=== PATIENT | male | born 1990 | race Caucasian/White ===

== ENCOUNTER 2019-01-30 15:44 | Observation (INO) | payer OTHER, SELFPAY ==
[2019-01-30 16:08] LABS: #Basophils 0.1 thou/uL (0.0-0.2); #Eosinphils 0.5 thou/uL (0.0-0.7); #Lymphocytes 2.1 thou/uL (1.20-3.40); #Monocytes 0.9 thou/uL (0.11-0.59); #Neutrophils 10.4 thou/uL (1.40-6.50); %Basophils 0.4 % (0.0-1.0); %Eosinophils 3.6 % (0.0-10.0); %Lymphocytes 15.2 % (21.0-51.0); %Monocytes 6.7 % (0.0-10.0); %Neutrophils 74.2 % (42.0-75.0); Hemoglobin 16.9 g/dL (14.0-18.0); Mean Corpuscular HGB CONC 33.3 g/dL (32.0-36.0); Mean Corpuscular Hemoglobin 26.1 pg (27.0-31.0); Mean Corpuscular Volume 78.5 fL (78.0-98.0); Mean Platelet Volume 7.9 fL (7.4-10.4); Platelet Count 286 thou/uL (130-400); RBC Distribution Width 12.5 % (11.5-14.5); Red Blood Cell (RBC) Count 6.47 mill/uL (4.70-6.10); White Blood Cell (WBC) Count 14.1 thou/uL (4.8-10.8)
[2019-01-30 16:31] LABS: ALT (SGPT) 55 U/L (8-55); AST (SGOT) 26 U/L (5-34); Albumin 4.7 g/dL (3.5-5.0); Alkaline Phosphatase 115 U/L (40-150); Anion Gap 14 mmol/L (10-20); BUN (Urea Nitrogen) 12 mg/dL (8.9-20.6); Bilirubin, Total 0.3 mg/dL (0.2-1.2); Calc. Creatinine Clearance 0 mL/min (70-130); Carbon Dioxide 26 mmol/L (22-29); Chloride 104 mmol/L (98-107); Estimated GFR-MDRD Greater than 90; Globulin 3.5 g/dL (2.4-3.5); Glucose 131 mg/dL (70-105); Lipase 23 U/L (8-78); Potassium 4.2 mmol/L (3.5-5.1); Protein, Total 8.2 g/dL (6.0-8.3); Sodium 140 mmol/L (136-145)
[2019-01-30] MEDS ORDERED: Pantoprazole 40 MG VIAL ONE (16:50)
[2019-01-30] MEDS ORDERED: Ondansetron PF 4 MG/2 ML Vial ONE (16:50)
[2019-01-30 17:17] LABS: Bilirubin Negative (Negative); Blood, Urine Negative (Negative); Clarity CLEAR (Clear); Glucose, Urine (Dipstick) Negative (Negative); Leukocyte Negative (Negative); Nitrite Negative (Negative); Protein, Urine (Dipstick) 30 mg/dL (Neg-Trace); Specific Gravity, Urine 1.031 (1.002-1.036); Urobilinogen 0.2 mg/dL (0.2-1.0)
[2019-01-30 17:19] LABS: Bacteria/HPF None Seen HPF (None Seen); Hyaline Casts/LPF 4-6 HYALINE CAST LPF (0-3 Hyaline); Squamous Epithelial 0-3 HPF (0-3)
[2019-01-30 17:35] LABS: Renal Epithelial None Seen HPF (0-3); Transitional Epithelial NONE SEEN HPF (0-3)
[2019-01-30] MEDS ORDERED: Promethazine HCl 25 MG/ML VIAL ONE (18:04)
[2019-01-30] MEDS ORDERED: Morphine 4 MG/ML VIAL ONE (18:28)
--- NOTE | 2019-01-30 18:33 | ULT ---
GALLBLADDER ULTRASOUND: Indications: Abdominal pain. FINDINGS: Images of the gallbladder show numerous echogenic gallstones. Gallbladder wall thickness is normal. C ommon duct is normal caliber measuring 4 mm. Pancreas is obscured. The liver is echogenic suggesting fatty infiltration. The right kidney is imaged and appears unremarkable. IMPRESSION: Cholelithiasis. POS: JACK
[2019-01-30] MEDS ORDERED: Ketorolac Tromethamine 30 MG/ML VIAL IVP PRN (19:40)
[2019-01-30] MEDS ORDERED: Acetaminophen 1,000 MG in Premix Bag 1 BAG IVPB PRN (19:41)
[2019-01-30] MEDS: Lactated Ringer's 1,000 ML IV SCH (20:31)
[2019-01-30] MEDS ORDERED: Morphine 4 MG/ML VIAL SLOW IVP PRN (21:14)
[2019-01-30] MEDS ORDERED: Ondansetron PF 4 MG/2 ML Vial SLOW IVP PRN (21:18)
[2019-01-31 01:14] VITALS: BMI 38.9
[2019-01-31] MEDS: Lactated Ringer's 1,000 ML IV SCH (06:01)
[2019-01-31] MEDS ORDERED: Ibuprofen 600 MG TAB PO PRN (08:32)
[2019-01-31] MEDS ORDERED: traMADol HCl 50 MG TAB PO PRN ×2 (08:32)
[2019-01-31] MEDS ORDERED: Acetaminophen 500 MG TAB PO PRN (08:32)
--- NOTE | 2019-01-31 08:48 | HP ---
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 He presented to the emergency room. Ultrasound revealed gallstone with bile duct caliber of 4 mm. Liver function tests are normal. CBC normal. ALLERGIES: NONE. SOCIAL HISTORY: Tobacco, vapes. Alcohol, none. MEDICATIONS: None. PAST SURGICAL HISTORY: Noncontributory. PAST MEDICAL HISTORY: Noncontributory. REVIEW OF SYSTEMS: Ten-point noncontributory. FAMILY HISTORY: Noncontributory. PHYSICAL EXAMINATION: VITAL SIGNS: Height 5 feet and 9 inches, weight 263 pounds, BMI 38. Temperature 98.4, pulse 89, and blood pressure 131/92. HEAD, EYES, EARS, NOSE, AND THROAT: Unremarkable. LUNGS: Clear to auscultation. CARDIAC: Regular rate and rhythm without murmur or gallop. ABDOMEN: Soft. Tenderness in right upper quadrant with positive Martin's sign. SKIN: Normal, not jaundiced. Sclerae without icterus. No lymphadenopathy in neck, axilla, or groins. NEUROLOGIC: GCS 15. Neurologically intact. No deficits. EXTREMITIES: No ankle edema. Good pedal pulses. ASSESSMENT AND PLAN: Cholecystitis, cholelithiasis. Recommend laparoscopic video cholecystectomy. Risks of infection, bleeding, visceral and biliary injury discussed, questions answered. Job ID: [id number]
[2019-01-31] MEDS ORDERED: Fentanyl 100 MCG/2 ML VIAL ONE (10:32)
[2019-01-31] MEDS ORDERED: Bupivacaine HCl 0.5%/Epinephrine 1:200,000/PF 30 ml Vial ONE (11:10)
--- NOTE | 2019-01-31 12:53 | DIS ---
DATE OF ADMISSION: 01/30/2019 DATE OF DISCHARGE: 01/31/2019 DISCHARGE DIAGNOSES: Acute on chronic cholecystitis and cholelithiasis. PROCEDURES PERFORMED: Laparoscopic video cholecystectomy and ultrasound in the emergency room. HOSPITAL COURSE: A 28-year-old male presenting with biliary symptoms, received intravenous antibiotics after ultrasound demonstrating gallstones with normal liver function tests. He underwent laparoscopic video cholecystectomy. Postoperatively, discharged home on Tylenol, ibuprofen, and Ultram p.r.n. pain. Diet and activity as tolerated. Follow up in my office in 2 to 3 weeks or sooner if needed. Job ID: [id number]
--- NOTE | 2019-01-31 12:53 | OP ---
DATE OF PROCEDURE: 01/30/2019 PREOPERATIVE DIAGNOSES: Acute cholecystitis, cholelithiasis, and chronic cholecystitis. POSTOPERATIVE DIAGNOSES: Acute cholecystitis, cholelithiasis, and chronic cholecystitis. PROCEDURE PERFORMED: Laparoscopic video cholecystectomy. ANESTHESIA: General, local 0.5% Marcaine with epinephrine, 30 mL. DESCRIPTION OF PROCEDURE: The patient was taken to the operating room. Under general anesthesia, abdomen was prepared with ChloraPrep and draped in routine fashion. Local anesthetic was infiltrated in the skin and subcutaneous tissue about all port sites. An infraumbilical incision made. Pneumoperitoneum to 15 mmHg obtained with a Veress needle, replaced with a 5 port and laparoscope inserted. Right subxiphoid incision was made and 11 port placed, right subcostal incision was made, midclavicular entrance line and the 5 ports placed. The gallbladder was acutely inflamed, required decompression to grasp it. Liver appeared to be normal. Fundus grasped at the cephalad. Infundibulum grasped and reflected laterally. Cystic artery and duct carefully dissected free, identifying cystic artery and duct, double clipping and proximally dividing them, dissecting the gallbladder from liver bed, obtaining good hemostasis prior to division of final peritoneal attachments. Gallbladder and gallstones removed and good hemostasis ensured. Irrigant and pneumoperitoneum evacuated. All instruments removed. All skin incisions were approximated with interrupted subdermal 4-0 Monocryl and Dermaglue applied. Job ID: [id number]
[2019-01-31 13:26] VITALS: BP 138/86; TEMP 98.6
[2019-01-31] MEDS ORDERED: Rocuronium Bromide 10 MG/ML (10ML VIAL) ONE (15:09)
[2019-01-31] MEDS ORDERED: Glycopyrrolate 0.2 MG/ML 5 ML SYRINGE ONE (15:09)
[2019-01-31] MEDS ORDERED: PHENYLEPHRINE-NS 100 MCG/ML 10 ML SYRINGE ONE (15:09)
[2019-01-31] MEDS ORDERED: Lidocaine 1% PF 5 ML VIAL ONE (15:09)
[2019-01-31] MEDS ORDERED: Ondansetron PF 4 MG/2 ML Vial ONE (15:09)
[2019-01-31] MEDS ORDERED: PROPOFOL 200 MG/20 ML VIAL ONE (15:09)
== END 2019-01-31 15:45 | disposition home or self-care (01) ==
LOC: ERS 15:44 → SURG A 18:22
PROVIDERS: ADMIT Specialist; ATTEND Specialist
PROC: 0FT44ZZ Resection of Gallbladder, Percutaneous Endoscopic Approach (ICD-10-PCS; principal; 2019-01-30)
DX: K80.12 Calculus of gallbladder with acute and chronic cholecystitis without obstruction (principal); F17.290 Nicotine dependence, other tobacco product, uncomplicated
CPT/HCPCS: 36415; 76705; 80053; 81003; 81015; 83690; 85025; 88304; 96361; 96365; 96367; 96372; 96375; C9113; G0378; J0131; J0500; J0670; J1885; J1956; J2001; J2270; J2405; J2550; J2704; J3010

== ENCOUNTER 2021-11-12 10:28 | Emergency (ER) | payer SELFPAY | END 2021-11-12 11:38 | disposition home or self-care (01) | LOC: ERS 10:28 | DX: Z04.1 Encounter for examination and observation following transport accident (principal) | CPT/HCPCS: 99283 ==